=== PATIENT | male | born 1990 | race Caucasian/White ===

== ENCOUNTER 2018-08-01 08:36 | Emergency (ER) | payer OTHER ==
[2018-08-01 08:50] VITALS: BP 145/70
--- NOTE | 2018-08-01 09:22 | UC ---
UC General HPI - HPI Summary HPI Summary: was rock climbing last evening when he fell about 6 feet and rolled his ankle and having a lot of pain. Barely able to ambulate. Tried doing gentle movements this AM without much success. Has sprained it in the past several times playing soccer. - History of Current Complaint Chief Complaint: UCLowerExtremity Stated Complaint: ANKLE INJURY Time Seen by Provider: 08/01/18 09:02 Pain Intensity: 7 - Allergy/Home Medications Allergies/Adverse Reactions: Allergies Allergy/AdvReac Type Severity Reaction Status Date / Time environmental Allergy Congestion Uncoded 08/01/18 08:50 Home Medications: Home Medications NK [No Home Medications Reported] 08/01/18 [History Confirmed 08/01/18] PMH/Surg Hx/FS Hx/Imm Hx Previously Healthy: Yes - Surgical History Surgical History: Yes Surgery Procedure, Year, and Place: wisdom teeth - Social History Alcohol Use: Occasionally Substance Use Type: None Smoking Status (MU): Never Smoked Tobacco Review of Systems All Other Systems Reviewed And Are Negative: Yes Motor: Positive: Decreased ROM Physical Exam Triage Information Reviewed: Yes Appearance: Well-Appearing Vital Signs: Initial Vital Signs Temp 98.4 F 08/01/18 08:45 Pulse 76 08/01/18 08:45 Resp 18 08/01/18 08:45 BP 145/70 08/01/18 08:45 Pulse Ox 97 08/01/18 08:45 Vital Signs Reviewed: Yes Musculoskeletal: Positive: Other: - right ankle - edema and mild ecchymosis over lateral malleolus, mild tenderness over medial malleolus limited ROM due to pain. Good pulses and cap refill Diagnostics - Radiology right ankle Radiology Interpretation Completed By: Radiologist Summary of Radiographic Findings: No fracture. Consider lateral supporting ligamentous injury Course/Dx - Course Course Of Treatment: This is a 28 yr old who fell yesterday while rock climbing injuring his right ankle Right ankle xray - no fracture likely ligament tear Plan Continue CAM boot weight bearing as tolerated Continue gentle movements Continue, rest, elevate, ice and ibuprofen as needed for pain/swelling If symptoms persist or do not improve, recommend follow up with Orthopedics or Sports Medicine - Diagnoses Provider Diagnosis: Right ankle sprain Discharge - Sign-Out/Discharge Documenting (check all that apply): Patient Departure All imaging exams completed and their final reports reviewed: Yes - Discharge Plan Condition: Fair Disposition: HOME Patient Education Materials: Ankle Sprain (ED) Referrals: Facundo Schaeffer MD [Primary Care Provider] - Piedad Tavera MD [Medical Doctor] - Tom Butler [Medical Doctor] - Additional Instructions: Continue CAM boot weight bearing as tolerated Continue gentle movements Continue, rest, elevate, ice and ibuprofen as needed for pain/swelling If symptoms persist or do not improve, recommend follow up with Orthopedics or Sports Medicine - Billing Disposition and Condition Condition: FAIR Disposition: Home
== END 2018-08-01 09:44 | disposition home or self-care (01) ==
LOC: UCEAST 08:36
DX: S93.491A Sprain of other ligament of right ankle, initial encounter (principal); Z91.09 Other allergy status, other than to drugs and biological substances; W17.89XA Other fall from one level to another, initial encounter; Y93.31 Activity, mountain climbing, rock climbing and wall climbing; Y92.9 Unspecified place or not applicable
CPT/HCPCS: 99212; G0463

== ENCOUNTER 2018-10-19 08:54 | Emergency (ER) | payer OTHER ==
[2018-10-19 09:04] VITALS: BP 123/70
--- NOTE | 2018-10-19 09:32 | UC ---
Ear Complaint HPI - HPI Summary HPI Summary: 28-year-old male comes in with a chief complaint of right ear pain. One week ago because water in the ears been having pain ever since. He does have some rhinorrhea. No fevers or chills. No cough or chest congestion. The pain is gradually been increasing over time. He has had cerumen impaction in the past. - History of Current Complaint Chief Complaint: UCEar Stated Complaint: RT EAR ISSUES Time Seen by Provider: 10/19/18 09:23 Pain Intensity: 1 - Allergies/Home Medications Allergies/Adverse Reactions: Allergies Allergy/AdvReac Type Severity Reaction Status Date / Time amoxicillin Allergy Hives Verified 10/19/18 09:05 Penicillins Allergy Hives Verified 10/19/18 09:05 environmental Allergy Congestion Uncoded 10/19/18 09:05 Home Medications: Home Medications Ibuprofen TAB* [Advil TAB*] 400 mg PO Q6H PRN 10/19/18 [History Confirmed ] PMH/Surg Hx/FS Hx/Imm Hx Previously Healthy: Yes - Surgical History Surgical History: Yes Surgery Procedure, Year, and Place: wisdom teeth - Family History Known Family History: Positive: Non-Contributory - Social History Alcohol Use: Occasionally Substance Use Type: None Smoking Status (MU): Never Smoked Tobacco Review of Systems All Other Systems Reviewed And Are Negative: Yes Constitutional: Positive: Negative Skin: Positive: Negative Eyes: Positive: Negative ENT: Positive: Ear Ache, Nasal Discharge Respiratory: Positive: Negative Cardiovascular: Positive: Negative Gastrointestinal: Positive: Negative Motor: Positive: Negative Neurovascular: Positive: Negative Musculoskeletal: Positive: Negative Neurological: Positive: Negative Psychological: Positive: Negative Is Patient Immunocompromised?: No Physical Exam Triage Information Reviewed: Yes Appearance: Well-Appearing, No Pain Distress, Well-Nourished Vital Signs: Initial Vital Signs Temp 98 F 10/19/18 09:02 Pulse 64 10/19/18 09:02 Resp 14 10/19/18 09:02 BP 123/70 10/19/18 09:02 Pulse Ox 98 10/19/18 09:02 Vital Signs Reviewed: Yes Eye Exam: Normal Eyes: Positive: Conjunctiva Clear ENT: Positive: TM red - RT, Other - The right ear canal is partially obscured by cerumen. The tragus and pinna are nontender. Neck: Positive: Supple Respiratory: Positive: Lungs clear, Normal breath sounds, No respiratory distress Cardiovascular: Positive: RRR Musculoskeletal: Positive: Strength Intact, ROM Intact Neurological: Positive: Alert Psychological: Positive: Age Appropriate Behavior Skin Exam: Normal Ear Complaint Course/Dx - Course Course Of Treatment: Right ear was irrigated by nursing. On reexamination the cerumen is gone. Patient reports his pain is less. To treat with antibiotic eardrops. Also with the right serous otitis media we discussed treatment are not with antibiotic orally. At this time the patient prefers to have the prescription to treat if not improved. - Differential Dx/Diagnosis Provider Diagnosis: Right serous otitis media, Right otitis externa, Right ear impacted cerumen Discharge - Sign-Out/Discharge Documenting (check all that apply): Patient Departure All imaging exams completed and their final reports reviewed: No Studies - Discharge Plan Condition: Stable Disposition: HOME Prescriptions: DOXYcycline CAP(*) [DOXYcycline 100MG CAP(*)] 100 mg PO BID #20 cap Ofloxacin 0.3% (Ear Drop)* [Floxin 0.3% OTIC.IBIS (Ear Drop)] 5 drop RIGHT EAR BID #1 btl Patient Education Materials: Otitis Externa (ED), Serous Otitis Media (ED), Cerumen Impaction (ED) Referrals: Facundo Schaeffer MD [Primary Care Provider] - Additional Instructions: FOLLOW UP WITH YOUR DOCTOR IF NOT COMPLETELY IMPROVED. GET RECHECKED SOONER IF YOUR CONDITION WORSENS OR ANY QUESTIONS OR CONCERNS. - Billing Disposition and Condition Condition: STABLE Disposition: Home
== END 2018-10-19 10:13 | disposition home or self-care (01) ==
LOC: UCEAST 08:54
DX: H65.91 Unspecified nonsuppurative otitis media, right ear (principal); H60.91 Unspecified otitis externa, right ear; H61.21 Impacted cerumen, right ear; Z88.0 Allergy status to penicillin
CPT/HCPCS: 99212; G0463

== ENCOUNTER 2019-03-18 16:56 | Emergency (ER) | payer OTHER ==
[2019-03-18 17:05] VITALS: BP 123/71
--- NOTE | 2019-03-18 17:07 | UC ---
Back Pain HPI - HPI Summary HPI Summary: 28 yo male presents with back pain. He tells me that about 2 weeks ago he was skiing and fell. He fell face forward and his back hyper-extended and his feet were by his head (he describes this as a scorpion type pose). He was ambulatory immediately following and continued skiing. Since that time has noticed continued mid back pain that is most noticeable during activities. He has continued to be very active including skiing and running and going to the gym. He notices that his pain is worse with lifting his arms above his head and feels better with spine flexion. He notes some faint "numbness" to the left of his back at the level of T6/T7, but this does not wrap around to the front or midaxillary area. He has not taken anything OTC for his discomfort. Denies SOB, chest pain, abdominal pain, difficulty breathing, constipation, loss of bowel/ bladder control, or radiation of pain. He was googling his symptoms and is concerned about a "disk issue". - History of Current Complaint Chief Complaint: UCBackPain Stated Complaint: BACK PAIN Time Seen by Provider: 03/18/19 17:07 Hx Obtained From: Patient Onset/Duration: Sudden Onset Severity Initially: Moderate Severity Currently: Moderate Pain Intensity: 6 Pain Scale Used: 0-10 Numeric - Allergies/Home Medications Allergies/Adverse Reactions: Allergies Allergy/AdvReac Type Severity Reaction Status Date / Time amoxicillin Allergy Hives Verified 03/18/19 17:03 Penicillins Allergy Hives Verified 03/18/19 17:03 environmental Allergy Congestion Uncoded 03/18/19 17:03 PMH/Surg Hx/FS Hx/Imm Hx - Additional Past Medical History Additional PMH: None - Surgical History Surgical History: Yes Surgery Procedure, Year, and Place: wisdom teeth - Family History Known Family History: Positive: Non-Contributory - Social History Occupation: Employed Full-time Lives: With Family Alcohol Use: Occasionally Alcohol Amount: 1-2x week Substance Use Type: Marijuana Smoking Status (MU): Never Smoked Tobacco Review of Systems All Other Systems Reviewed And Are Negative: No Constitutional: Positive: Negative Skin: Positive: Negative Respiratory: Positive: Negative Cardiovascular: Positive: Negative Gastrointestinal: Positive: Negative Neurovascular: Positive: Negative Musculoskeletal: Positive: Other: - Back pain Psychological: Positive: Negative Physical Exam - Summary Physical Exam Summary: GENERAL: NAD. WDWN. No pain distress. SKIN: No rashes, sores, lesions, or open wounds. NECK: Supple with FROM. Nontender. CHEST: CTAB. No r/r/w. No accessory muscle use. Breathing comfortably and in no distress. CV: RRR. Pulses intact. Cap refill <2seconds ABDOMEN: Soft. NTTP. No CVA tenderness. Bowel sounds present MSK: Mild point TTP at T6/T7. Pain here with raising arms above head - pain improved with bending forward. FROM with 5/5 strength b/l UEs. NEURO: Alert. Faint decreased sensation at lateral aspect of T6/T7 dermatome that does not extends roughly to the posterior axillary line. PSYCH: Age appropriate behavior. Triage Information Reviewed: Yes Vital Signs: Initial Vital Signs Temp 97.3 F 03/18/19 16:59 Pulse 58 03/18/19 16:59 Resp 18 03/18/19 16:59 BP 123/71 03/18/19 16:59 Pulse Ox 100 03/18/19 16:59 Vital Signs Reviewed: Yes Diagnostics - Radiology T spine XR Radiology Interpretation Completed By: Radiologist Summary of Radiographic Findings: IMPRESSION: Minimal wedging of the T7 vertebra for which a compression fracture cannot BE excluded. Back Pain Course/Dx - Course Course Of Treatment: XR as above. Discussed with pt. I believe this is an acute compression fracture given his correlating pain and LEROY. Given his continued symptoms with decreased sensation to a small area of corresponding dermatome, will refer him to [facility] for further evaluation. Possible PT and/or MRI likely if symptoms persist. Discussed with pt and he is agreeable with the plan. - Differential Dx/Diagnosis Provider Diagnosis: Compression fracture of T7 vertebra Discharge ED - Sign-Out/Discharge Documenting (check all that apply): Patient Departure All imaging exams completed and their final reports reviewed: Yes - Discharge Plan Condition: Stable Disposition: HOME Prescriptions: Naproxen [Naproxen 500 mg tab] 500 mg PO BID PRN #30 tablet PRN Reason: Pain - Moderate Patient Education Materials: Vertebral Compression Fracture (ED), Thoracic Pain (ED) Referrals: Facundo Schaeffer MD [Primary Care Provider] - [facility] [Provider Group] - As Soon As Possible Additional Instructions: If you develop a fever, shortness of breath, chest pain, new or worsening symptoms - please call your PCP or go to the ED immediately. As discussed, there appears to be a small compression fracture of your T7 vetebrae. This should heal with rest and time. I recommend that you take tylenol/ibuprofen as directed for discomfort OR the naproxen prescription send to your pharmacy. Please call [facility] at the number below to schedule an appointment within 1 week for a recheck - Billing Disposition and Condition Condition: STABLE Disposition: Home - Attestation Statements Provider Attestation: I was available for consult. This patient was seen by the MAGNOLIA. The patient was not presented to, seen by, or examined by me. -Abena
== END 2019-03-18 17:54 | disposition home or self-care (01) ==
LOC: UCEAST 16:56
DX: S22.068A Other fracture of T7-T8 thoracic vertebra, initial encounter for closed fracture (principal); Y93.23 Activity, snow (alpine) (downhill) skiing, snowboarding, sledding, tobogganing and snow tubing; Y92.9 Unspecified place or not applicable; Z88.0 Allergy status to penicillin; Z91.09 Other allergy status, other than to drugs and biological substances
CPT/HCPCS: 72070; 99212; G0463